=== PATIENT | female | born 1925 | race Caucasian/White ===

== ENCOUNTER 2017-08-28 09:28 | Emergency (ER) | payer MEDICARE, OTHER ==
[2017-08-28] MEDS ORDERED: Lidocaine 1% (PF) 30 ML VIAL ONE (10:19)
--- NOTE | 2017-08-28 10:26 | RAD ---
THREE VIEWS OF THE RIGHT FIFTH FINGER: Date: 08-28-17 Comparison: None. History: Trauma, pain. FINDINGS: There is diffuse soft tissue swelling involving the fifth finger. 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 There is severe erosive change centered at the fifth proximal interphalangeal joint with a pencil and cup deformity. This is suspicious for inflammatory arthropathy. No acute fracture or dislocation. IMPRESSION: Soft tissue swelling with no displaced fracture or dislocation. Severe degenerative changes, includin g erosive change at the fifth proximal interphalangeal joint as detailed above. POS: [id number]
== END 2017-08-28 12:00 | disposition home or self-care (01) ==
LOC: ERS 09:28
DX: S61.216A Laceration without foreign body of right little finger without damage to nail, initial encounter (principal); I10 Essential (primary) hypertension; J44.9 Chronic obstructive pulmonary disease, unspecified; W22.8XXA Striking against or struck by other objects, initial encounter
CPT/HCPCS: 12001; J2001

== ENCOUNTER 2017-09-06 12:14 | Emergency (ER) | payer MEDICARE ==
[2017-09-06] MEDS ORDERED: Bacitracin Zinc 1 Packet ONE (12:52)
== END 2017-09-06 13:01 | disposition home or self-care (01) ==
LOC: ERS 12:14
DX: S61.216D Laceration without foreign body of right little finger without damage to nail, subsequent encounter (principal); I10 Essential (primary) hypertension; J44.9 Chronic obstructive pulmonary disease, unspecified